=== PATIENT | female | born 1965 | race American Indian/Alaskan Native ===

== ENCOUNTER 2017-07-27 16:51 | Emergency (ER) | payer MEDICARE ==
[2017-07-27] MEDS ORDERED: MOTRIN PO ONE ×2 (18:54→18:57)
[2017-07-27 19:29] LABS: Anion Gap 19 mmol/L; BUN/Creatinine Ratio 22.85; Blood Urea Nitrogen 16 mg/dL (7-17); Calcium 9.4 mg/dL (8.4-10.2); Carbon Dioxide 24 mmol/L (22-30); Chloride 104.9 mmol/L (98-107); Glucose 93 mg/dL (65-100); Hematocrit 35.8 % (30.3-42.9); Hemoglobin 11.6 gm/dl (10.1-14.3); Mean Corpuscular HGB Conc 32 % (30-34); Mean Corpuscular Hemoglobin 28 pg (28-32); Mean Corpuscular Volume 85 fl (79-97); Platelet Count 184 K/mm3 (140-440); Potassium 3.5 mmol/L (3.6-5.0); Red Blood Count 4.21 M/mm3 (3.65-5.03); Red Cell Distribution Width 14.1 % (13.2-15.2); Sodium 144 mmol/L (137-145); White Blood Count 5.5 K/mm3 (4.5-11.0)
--- NOTE | 2017-07-27 19:38 | Cat Scan Report ---
FINAL REPORT PROCEDURE: CT head without contrast. TECHNIQUE: Computerized tomography of the head was performed without contrast material. HISTORY: Dizziness resulting in fall and head injury. COMPARISON: No prior studies are available for comparison. FINDINGS: The ventricles are normal in size. The rogers matter and white matter appear normal. There are no mass lesions. There is no intracranial hemorrhage. The calvarium appears intact. The mastoid air cells and visualized paranasal sinuses are well aerated. IMPRESSION: Normal study.
--- NOTE | 2017-07-27 20:11 | Cat Scan Report ---
FINAL REPORT PROCEDURE: CT cervical spine without contrast. TECHNIQUE: Computerized tomography of the cervical spine was performed from the skull base to T1 without contrast material. HISTORY: Patient fell, neck injury. COMPARISON: No prior studies are available for comparison. FINDINGS: The cervical vertebrae have normal height and alignment. There are no fractures. There is no subluxation. There is moderate disc space narrowing at C5-6. The spinal canal appears widely patent. The facet joints appear satisfactory. The neural foramina are widely patent. The prevertebral soft tissues have normal thickness. IMPRESSION: No evidence of acute cervical spine injury.
--- NOTE | 2017-07-27 20:23 | Cat Scan Report ---
FINAL REPORT PROCEDURE: CT facial bones without contrast. TECHNIQUE: Computerized tomography of the facial bones and soft tissues with axial, sagittal and coronal sections performed from the cranial aspect of the frontal sinuses to the caudal portion of the mandible without contrast material. HISTORY: Right face swelling status post fall. COMPARISON: No prior studies are available for comparison. FINDINGS: The facial bones appear intact. There are no fractures identified. The orbital contents appear normal. There are no blowout type injuries. There is mild mucosal thickening in both maxillary sinuses. The mastoid air cells are clear. The facial soft tissues are unremarkable. IMPRESSION: No evidence of fracture.
--- NOTE | 2017-07-27 20:28 | Emergency Department Report ---
ED Fall HPI - General Chief Complaint: Fall Stated Complaint: FALL Time Seen by Provider: 07/27/17 18:12 Source: family, EMS Mode of arrival: Stretcher Limitations: Physical Limitation - History of Present Illness Initial Comments: 51-year-old female with a past medical history of multiple sclerosis with chronic right sided deficits requiring assistance to ambulate presents to the hospital after mechanical fall. Patient was getting out of the car and lost her footing. She fail landing on the left side and presents with complaints of left face pain, left shoulder pain, and left thorax pain positive LOC reported. Patient chronically has right arm contraction at the elbow with limited movement and right foot drop. Pain is constant, rated 8/10 in intensity, aching, worse with palpation and movement. No alleviating factor reported - Related Data Home Medications Medication Instructions Recorded Confirmed Last Taken Baclofen [Lioresal] 30 mg PO DAILY 07/27/17 07/27/17 Unknown Rebif 44 MCG/0.5 ML 44 mcg IM 3XW 07/27/17 07/27/17 Unknown Tizanidine HCl [tiZANidine] 10 mg PO DAILY 07/27/17 07/27/17 Unknown Previous Rx's Medication Instructions Recorded Last Taken Type Ibuprofen [Motrin] 600 mg PO Q8H PRN #30 tablet 07/27/17 Unknown Rx Allergies Allergy/AdvReac Type Severity Reaction Status Date / Time meperidine HCl [From Demerol] Allergy Unknown Verified 07/27/17 17:33 morphine Allergy Unknown Verified 07/27/17 17:33 all narcotics Allergy Unknown Uncoded 07/27/17 17:33 ED Review of Systems ROS: Stated complaint: FALL Other details as noted in HPI Comment: All other systems reviewed and negative Other: Constitutional: No fevers chills Eyes: No eye pain visual changes ENT: No ear pain or throat pain Neck: Denies pain Respiratory: Denies cough wheezing shortness of breath Cardiovascular: Denies palpitations GI: Denies abdominal pain, nausea, vomiting, diarrhea, : Denies dysuria Musculoskeletal: as per hpi Skin: Denies rash, lesions, erythema Neurologic: + chronic right sided weakeness, no headache + facial pain ED Past Medical Hx - Past Medical History Additional medical history: MS - Social History Smoking Status: Never Smoker Substance Use Type: None - Medications Home Medications: Home Medications Medication Instructions Recorded Confirmed Last Taken Type Baclofen [Lioresal] 30 mg PO DAILY 07/27/17 07/27/17 Unknown History Ibuprofen [Motrin] 600 mg PO Q8H PRN #30 tablet 07/27/17 Unknown Rx Rebif 44 MCG/0.5 ML 44 mcg IM 3XW 07/27/17 07/27/17 Unknown History Tizanidine HCl [tiZANidine] 10 mg PO DAILY 07/27/17 07/27/17 Unknown History ED Physical Exam - General Limitations: No Limitations - Other Other exam information: General: No limitations, patient is alert in no acute distress Head exam: Right periorbital swelling and tenderness Eyes exam: Normal appearance, pupils equal reactive to light, extraocular movements intact ENT: Moist mucous membrane, normal oropharynx Neck exam: Normal inspection, full range of motion, no meningismus generalized tenderness to the posterior neck muscles without isolated midline tenderness Respiratory exam: Clear to auscultation bilateral, no wheezes, rales, crackles Cardiovascular: Normal rate and rhythm, normal heart sounds Abdomen: Soft, nondistended, and nontender, with normal bowel sounds, no rebound, or guarding Extremity: Right arm and contracted. Limited movement. Tenderness at the right shoulder. Right foot drop brace noted. Chronic right leg weakness Back: Normal Inspection,no tenderness Neurologic: Alert, oriented x3, cranial nerves intact, right leg and right arm chronic weakness Psychiatric: normal affect, normal mood Skin: Warm, dry, intact ED Course Vital Signs 07/27/17 07/27/17 07/27/17 17:34 17:39 18:01 Temperature 98.5 F Pulse Rate 58 L 59 L 57 L Respiratory 19 18 13 Rate Blood Pressure 100/57 Blood Pressure 97/62 [Left] O2 Sat by Pulse 100 99 99 Oximetry 07/27/17 07/27/17 07/27/17 18:55 19:23 19:55 Temperature Pulse Rate Respiratory 18 18 Rate Blood Pressure 100/57 Blood Pressure [Left] O2 Sat by Pulse 99 Oximetry 07/27/17 20:00 Temperature Pulse Rate 71 Respiratory 26 H Rate Blood Pressure 99/66 Blood Pressure [Left] O2 Sat by Pulse 97 Oximetry - Reevaluation(s) Reevaluation #1: 07/27/17 20:28 Motrin 600 mg was provided for pain ED Medical Decision Making - Lab Data Result diagrams: 07/27/17 18:45 07/27/17 18:45 Lab Results 07/27/17 07/27/17 Range/Units 18:45 18:45 WBC 5.5 (4.5-11.0) K/mm3 RBC 4.21 (3.65-5.03) M/mm3 Hgb 11.6 (10.1-14.3) gm/dl Hct 35.8 (30.3-42.9) % MCV 85 (79-97) fl MCH 28 (28-32) pg MCHC 32 (30-34) % RDW 14.1 (13.2-15.2) % Plt Count 184 (140-440) K/mm3 Sodium 144 (137-145) mmol/L Potassium 3.5 L (3.6-5.0) mmol/L Chloride 104.9 (98-107) mmol/L Carbon Dioxide 24 (22-30) mmol/L Anion Gap 19 mmol/L BUN 16 (7-17) mg/dL Creatinine 0.7 (0.7-1.2) mg/dL Estimated GFR > 60 ml/min BUN/Creatinine Ratio 22.85 % Glucose 93 (65-100) mg/dL Calcium 9.4 (8.4-10.2) mg/dL - Radiology Data Radiology results: report reviewed Ct headache: No acute findings CT cervical spine: no acute finding CT facial bones: No acute findings Right shoulder x-ray, no acute findings Right rib series with chest x-ray: No acute findings - Medical Decision Making Plan to discharge patient home on Motrin since that is the only medication she states she can tolerate. No fracture or intracranial hemorrhage identified. Outpatient follow-up encouraged. - Differential Diagnosis intracranial hemorrhage, fracture, contusion, sprain Critical Care Time: No Critical care attestation.: If time is entered above; I have spent that time in minutes in the direct care of this critically ill patient, excluding procedure time. ED Disposition Clinical Impression: Fall, Shoulder contusion, Multiple sclerosis, Contusion of right chest wall Disposition: DC- TO HOME OR SELFCARE Is pt being admited?: No Does the pt Need Aspirin: No Condition: Stable Instructions: Fall Prevention for Older Adults (ED), Musculoskeletal Pain (ED) Additional Instructions: Taken medication as needed. Return if symptoms worsen. Follow up with your doctor for further treatment. Prescriptions: Ibuprofen [Motrin] 600 mg PO Q8H PRN #30 tablet PRN Reason: Pain Referrals: PRIMARY CARE, [Primary Care Provider] - 2-3 Days MP PATEL MD [Staff Physician] - 3-5 Days (neurologist) MYRNA SALOMON MD [Staff Physician] - 3-5 Days (Primary care doctor ) Time of Disposition: 21:57
[2017-07-27 20:45] VITALS: BP 99/66
--- NOTE | 2017-07-27 21:42 | XRay Report ---
FINAL REPORT PROCEDURE: XR SHOULDER 2+V RT TECHNIQUE: Right shoulder, three views HISTORY: fall SHOULDER/RIB PAIN COMPARISON: No prior studies are available for comparison. FINDINGS: No acute fracture or joint dislocation is seen. The acromioclavicular and glenohumeral joints are intact. IMPRESSION: No acute fracture is identified
--- NOTE | 2017-07-27 21:45 | XRay Report ---
FINAL REPORT PROCEDURE: XR RIBS UNILAT 2V RT TECHNIQUE: Unilateral rib radiographs, 2 views of the RIGHT ribs. HISTORY: fall SHOULDER/RIB PAIN COMPARISON: No prior studies are available for comparison. FINDINGS: Lungs: Normal. Pleural space: Normal. Pneumothorax: None. Bony thorax/ribs: No acute fracture or focal osseous lesion is identified IMPRESSION: No acute fracture is seen
== END 2017-07-27 22:45 | disposition home or self-care (01) ==
LOC: ED 16:51
DX: S20.211A Contusion of right front wall of thorax, initial encounter (principal); S40.011A Contusion of right shoulder, initial encounter; G35 Multiple sclerosis; Z88.5 Allergy status to narcotic agent; Z88.8 Allergy status to other drugs, medicaments and biological substances; W19.XXXA Unspecified fall, initial encounter; Y93.89 Activity, other specified; Y99.9 Unspecified external cause status; Y92.89 Other specified places as the place of occurrence of the external cause
CPT/HCPCS: 36415; 70450; 70486; 72125; 80048; 85027